=== PATIENT | male | born 1960 | race Caucasian/White ===

== ENCOUNTER → 2019-02-20 12:38 | Outpatient (CLI) | payer OTHER, SELFPAY ==
--- NOTE | 2019-02-20 | DI.MRI.S_ITS ---
PROCEDURE: MR ANKLE RT WO CON INDICATIONS: Pain in right ankle and joints of right foot. Ankle pain and difficulty walking. TECHNIQUE: Noncontrast sagittal T1 spin echo and T2 fast spin echo with fat saturation, axial proton density fast spin echo and T2 fast spin echo with fat saturation, coronal T1 spin echo and T2 fast spin echo with fat saturation through the ankle/hindfoot. COMPARISON: None. FINDINGS: Image quality: There is mild motion artifact. Bones and joints: There is bony scalloping suggestive of erosive changes within the inferior talus and adjacent calcaneus along the subtalar joint with associated prominent bone marrow edema in the talus and calcaneus. No discrete fracture identified. There is a small subtalar joint effusion as well as intermediate soft tissue along the subtalar joint. There is a small tibiotalar joint effusion with a loculated component posteriorly. There is mild subchondral edema within the medial talar dome without a displaced or unstable fragment. Medial structures: The posterior tibialis, flexor digitorum longus, and flexor hallucis longus tendons are intact with a minimal amount of tenosynovial fluid. The posterior tibial neurovascular bundle appears normal within the tarsal tunnel, without extrinsic mass effect. The deltoid ligament demonstrates intermediate signal as attenuated appearance consistent with sequelae of a prior moderate to severe sprain. There is a small ossicle inferior to the medial malleolus consistent with sequelae of a small avulsion injury. The spring ligament components demonstrate attenuated signal likely represent sequelae of prior sprains. There is a small loculated fluid collection adjacent to the spring ligament inferior to the talar head suggestive of a ganglion cyst. This measures up to approximately 2 cm. Lateral structures: The anterior talofibular ligament is attenuated in appearance with fluid and edema along its expected course consistent with sequelae of a severe sprain. The calcaneofibular ligament is thickened consistent with sequelae of a prior mild to moderate sprain. The posterior talofibular ligament demonstrates mild intermediate signal consistent with degeneration or mild sprain. More superiorly, the anterior and posterior tibiofibular ligaments appear intact, as is the intermalleolar ligament. The tibiofibular syndesmosis demonstrates slight widening, measuring up to 3-4 mm, suggestive of a syndesmotic sprain. The peroneus longus and brevis tendons demonstrate normal location and morphology with mild peritendinous edema. Adjacent bony peroneal tubercle and retrotrochlear prominence are normal in size. The sinus tarsi demonstrates effacement of normal fatty signal with internal edema and bony scalloping along its margins. There also adjacent small cysts compatible with ganglion cysts measuring up to 1.2 cm. The calcaneonavicular and calcaneocuboid components of the bifurcate ligament appear intact. The dorsal calcaneocuboid ligament appears intact. Anterior structures: The tibialis anterior, extensor hallucis longus, and extensor digitorum longus tendons appear intact. The dorsal talonavicular ligament appears intact. Posterior and plantar structures: Achilles tendon is intact. Medial and lateral bands of the plantar fascia are of normal thickness. No abductor digiti quinti muscle atrophy to suggest Erickson neuropathy. IMPRESSION: 1. Bony scalloping suggestive of erosive changes along the subtalar joint involving the talus and to a lesser extent the calcaneus. The findings may reflect sequelae of an inflammatory arthropathy, intraosseous ganglion cysts with associated reactive changes, and less likely infection. Recommend correlation clinically. 2. Sequelae of a prior moderate to severe sprain of the deltoid ligament with a small avulsion fragment. 3. Sequelae of prior sprains of the spring ligament components with an associated ganglion cyst. 4. Lateral ligamentous sprains as described including a severe sprain of the anterior talofibular ligament. 5. Small focus of subchondral edema along the medial talar dome without a displaced or unstable osteochondral lesion. Dictated by: Manuel Levy M.D. on 02/20/2019 at 17:03 Approved by: Manuel Levy M.D. on 02/20/2019 at 17:16
== END ==
PROVIDERS: PCP Family Medicine; Visit Provider Podiatrist
DX: M25.571 Pain in right ankle and joints of right foot (principal); S83.421A Sprain of lateral collateral ligament of right knee, initial encounter; M25.461 Effusion, right knee; R26.2 Difficulty in walking, not elsewhere classified
CPT/HCPCS: 73721

== ENCOUNTER → 2019-09-12 15:35 | Outpatient (CLI) | payer OTHER, SELFPAY ==
--- NOTE | 2019-09-12 | DI.MRI.S_ITS ---
PROCEDURE: MR ANKLE RT WO/W CON INDICATIONS: Localized swelling, mass and lump, unspecified low TECHNIQUE: Noncontrast sagittal T1 spin echo and T2 fast spin echo with fat saturation, axial proton density fast spin echo and T2 fast spin echo with fat saturation, axial T1 spin echo with fat saturation, coronal T1 spin echo and T2 fast spin echo with fat saturation through the ankle/hindfoot. Post-contrast axial, coronal, and sagittal T1 spin echo with fat saturation through the ankle/hindfoot. COMPARISON: [facility], CR, XR FOOT 3+ VIEWS RIGHT, 09/07/2019, 15:12. [facility], CR, XR ANKLE 3+ VIEWS RIGHT, 09/07/2019, 15:17. [facility], MR, MR ANKLE RT WO CON, 02/20/2019, 12:44. FINDINGS: Image quality: Diagnostic. Bones and joints: No displaced acute fractures or dislocations are identified. There is a markedly abnormal appearance of the talus and calcaneus with postoperative changes noted along the lateral border of the talus. There prominent areas of geographic marrow edema identified within the talus and the adjacent anterior margin of the calcaneus. Degenerative changes of the middle and posterior subtalar joints are present. Degenerative cystic changes versus large erosions are noted in involving the talus near the middle subtalar joint, which is best appreciated within the region of the sinus tarsi. Small middle subtalar joint effusion is appreciated. Ifyl-su-rdeddvox degenerative changes are noted involving the tibiotalar joint. There is marrow edema involving the medial and lateral malleoli. Ankle mortise is well-maintained. No osteochondral defects are evident involving the tibial plafond toward the talar dome. There are full-thickness defects of the hyaline articular cartilage within the tibiotalar joint, however. A small to moderate-sized tibiotalar joint effusion is present. No suspicious osseous enhancement or definitive bone lesions are appreciated. Medial structures: The deltoid ligament is thickened and irregular demonstrating decreased signal intensity, suggesting scarring. A small avulsion fragment may be present at the tip of the medial malleolus, best appreciated on the T1 images. This is correlated with a conventional radiographic imaging. The spring ligament is thickened and heterogeneous, but appears to be intact, including the plantar components. They have tibialis posterior, flexor hallucis longus, and flexor digitorum longus tendons appear to be intact and are otherwise unremarkable. The posterior tibial nerve through the region of the tarsal tunnel is unremarkable. Lateral structures: The anterior and posterior distal tibiofibular ligaments are moderately heterogeneous, likely representing scarring. A full-thickness anterior talofibular ligament tear is present. The calcaneofibular ligament is moderately thickened and diffusely edematous with probable areas of intrasubstance partial-thickness tearing, which appears to have progressed in the interim. The posterior talofibular ligament is moderately heterogeneous, likely representing scarring. The thickening and mild increased signal involving the peroneus brevis and peroneus longus tendons at the tip of the lateral malleolus is similar to the prior study. Mild edema is present within the peritendinous tissues. A large ganglion cyst with associated prominent synovial hypertrophy/enhancement along the posterior margin of the tibiotalar joint probably is arising from the posterior talofibular ligament. Anterior structures: The tibialis anterior, extensor hallucis longus, and extensor digitorum longus tendons appear intact. Posterior and plantar structures: Achilles tendon is intact. Slight increase signal involving the mid to distal aspect of this tendon is incidentally noted. Medial and lateral bands of the plantar fascia are of normal thickness. Other: No suspicious soft tissue enhancement or definite soft tissue masses are evident. IMPRESSION: 1. The patient's palpable abnormality probably correlates with a prominent ganglion/synovial cyst with associated synovial hypertrophy along the posterior aspect of the tibiotalar joint and may be arising from tearing of the posterior talofibular ligament. A superimposed infectious or inflammatory process is felt to be less likely, but cannot be excluded. 2. Abnormal marrow signal of the talus and calcaneus most likely is degenerative. However, superimposed bone contusions or osteomyelitis cannot be completely excluded, but are felt to be less likely. 3. Tibiotalar joint effusion. 4. Peroneus brevis and peroneus longus tendinopathy without significant tearing. 5. Minimal Achilles tendinopathy. 6. Chronic injuries with associated scarring of the medial and lateral ankle ligaments. There does appear to have been interval progression of partial-thickness tearing of the calcaneofibular ligament. Dictated by: Kofi Childs M.D. on 09/12/2019 at 16:24 Approved by: Kofi Childs M.D. on 09/12/2019 at 16:34
== END ==
PROVIDERS: Family Provider Family Medicine; PCP Family Medicine; Visit Provider Podiatrist
DX: R22.41 Localized swelling, mass and lump, right lower limb (principal); M67.471 Ganglion, right ankle and foot; S93.411A Sprain of calcaneofibular ligament of right ankle, initial encounter
CPT/HCPCS: 73723; A9579

== ENCOUNTER 2019-11-17 10:01 | Day surgery (SDC) | payer OTHER, SELFPAY ==
[2019-11-14 08:31] VITALS: BMI 26.6
[2019-11-17] VITALS (7 sets, daily range): BP systolic 117–164; BP diastolic 85–99; PULSE 53–73; RESP 12–16; TEMP 36.2–36.7; O2SAT 96–100; BMI 25.6
--- NOTE | 2019-11-17 | PATH_ITS ---
[facility] Accession Number: [id number] . 01 Material submitted: . ankle - RIGHT ANKLE . 01 Diagnosis: Soft Tissue, Right Ankle, Excision: Fibrosynovial tissue with degenerative/reactive features and focal changes consistent with ganglion cyst. MRV 11/20/2019 1740 Local . 01 Electronically signed: . Yazmin Abad MD, Pathologist NPI- [id number] . 01 Gross description: . RIGHT ANKLE: Received in formalin is 1 fragment of carreon soft tissue measuring 1.1 x 1.0 x 0.9 cm. Tissue is inked. Specimen is sectioned and submitted in its entirety in 2 cassettes. /[facility] 11/17/2019 2356 Local . 01 Pathologist provided ICD-10: M67.449 . 01 CPT . 393476 Performed at: [address] [facility] [id number] MD Manuel Feliciano MD Phone: [phone]
[2019-11-17] MEDS: LACTATED RINGERS 1,000 ML 42 ML IV (10:35)
--- NOTE | 2019-11-17 11:36 | PM.PREOP ---
Pre-operative Note Interval Note History & Physical reviewed/Exam performed by Physician: Yes Changes to H&P: No
--- NOTE | 2019-11-17 11:36 | PM.OP.1 ---
Operative Date/Time/Diagnoses Date of procedure: 11/17/19 Time of procedure: 11:36 Pre-op diagnosis: Right posterior ankle soft tissue mass, suspect ganglion cyst. Right ankle DJD. Post-op diagnosis: same Procedure & Clinicians Procedure: Right posterior ankle soft tissue mass excision Right posterior subtalar joint exostectomy/arthrotomy Same procedure as scheduled: Yes Indications: Painful fullness to the ankle and narrowing of the joint space. Conservative measures failed to alleviate his pain and he wished to have surgical intervention at this time. Surgeon: Renetta Haro Click Yes if Unassisted: Yes Anesthesia Type: General Operative Notes Closure Type: primary Specimen(s): other (Soft tissue mass posterior ankle, suspect ganglion cyst) Estimated Blood Loss (mL): 30 Blood products transfused: none Procedure in detail: The patient was brought to the operating room and after our time-out, underwent induction of general anesthesia on the [facility]. A tourniquet was placed on the right thigh. He was transferred to the operating table in the prone position, well-padded and appropriately aligned. The ankle were prepped and draped in the usual aseptic manner. Anesthesia was delivered locally to the posterolateral ankle and subtalar joint. The tourniquet was inflated. Incision was made over the posterior lateral ankle between the Achilles and the fibular malleolus. The incision was deepened through subcutaneous tissues being careful to identify and retract all vital neurovascular structures. All bleeders were cauterized and ligated as necessary. Gently dissecting through an enlarged fat pad in this area, I was able to get down to the capsule and deepest tissues near the posterior lateral subtalar joint. there is a very thickened area of tissue that was just posterior to the posterior talofibular ligament and almost conjoined up with joint capsule. This was enlarged and filled with a slightly yellow to brown tinged clear slightly viscous fluid. This did not appear to be attached to the peroneal tendon components as that was much higher, and appeared to be discrete. This was removed and passed from the field. It measured approximately 1.4 x 1.1 x 0.3 cm. The posterior lateral subtalar joint capsule was entered this exposed the spurring and the narrowing of the joint space at the posterior facet. Also the fluid in that joint space area appeared to be clear with a slight darker tinge of brown to orange. Once it was clear the location of the prominence of that joint as well as the tightness of that joint, a rongeur as well as curette and very small osteotome were used to gain a little bit more room in that location. The bone did appear to feel softer in that location. A manual rasp was also used at the end to deliver a smoother surface. The area was irrigated with copious amounts normal sterile saline. The ankle and subtalar joint were gently brought through range of motion not noting any significant crepitus or catching in that location. Deep and subcutaneous closure was closed performed with Vicryl. The tourniquet was deflated and a prompt hyperemic response was seen in the foot. Nylon suture used to close the skin. with the deeper bleeding it was for the most part arrested however there was still some oozing from the bone most likely, so before the skin suture, I elected to use a TLS drain. Once it was closed and the dressing was placed the suction was able to work well and was draining appropriately. The foot was dressed with a lightly compressive sterile dressing and splint in alignment. Patient was meant to be placed in his postoperative boot however he stated that it was in the car and a little bit too zainab to place in operating room. He preferred not to get another 1 and understands that if it appears to be too dirty or unsafe he should request a prescription for a different boot. He was Transferred to PACU with vital signs stable. Complications: none Post-operative Condition: stable Disposition: PACU Plan for aftercare: Following a period of postoperative monitoring, the patient will be discharged home on written and oral postoperative instructions. He will keep the dressing dry and intact however in approximately 48 hours he was taught how to remove the drain. He also is given a vaccutainer to be able to swap out should his current vacutainer fill. The drain and vacutainer is appropriately padded and secured. He is okay to get into the boot with the drain on, but should not weightbear in the boot with the drain. Once the drain is removed he may put a little bit of weight on the foot but should not put full weight-bearing until we review him and his status at his 1st postoperative visit.
[2019-11-17] MEDS: CEFAZOLIN 2 GM/100 ML FROZ.PIGGY IV (11:44)
--- NOTE | 2019-11-17 12:22 | SUR.OPER ---
Prone on padded OR bed, head in foam head support, gel chest rolls, gel pad under knees, pillow under lower legs, toes free of pressure, arms secured on padded arm boards at <90 degrees abduction. Safety belt at thigh.
[2019-11-17] MEDS: DEXAMETHASONE 10 MG/ML VIAL 5 MG INJ (13:31)
[2019-11-17] MEDS: BUPIVACAINE 0.5% (PF) VIAL 30 ML INJ (13:36)
[2019-11-17] MEDS: KETOROLAC 30 MG/ML VIAL IV (14:10)
--- NOTE | 2019-11-17 15:53 | SUR.PHASEII ---
Pt ready to go soomn after arriving to Phase 2, pain controlled no nausea. When daughter arrived, extensive d/c instructions done on tube, drain and boot with daughter and pt along with all other d/c instruction. Pt left when ready and left in stable condition.
--- NOTE | 2019-11-20 15:38 | SUR.PHASEII ---
Pt just called back; states that he got a courtesy call this morning and that he is now starting to get concerned about a cough feels like sand in my throat.... doesn't feel like it's in my lungs. Denies SOB, difficulty breathing, calf pain/redness, or fever. Advised him to do coughing and deep breathing, and to call the surgeons office and talk to the doctor commissioned police officer. Also told him to be sure to notify them if he develops a fever. Pt states that he will do that and continued to state that he doesn't feel it is 'in my lungs.
== END 2019-11-17 15:30 | disposition home or self-care (01) ==
PROVIDERS: Family Provider Family Medicine; PCP Family Medicine; Referring Provider Podiatrist; Visit Provider Podiatrist
PROC: (CPT 28090; principal; 2019-11-17 11:15)
DX: R22.41 Localized swelling, mass and lump, right lower limb (principal); M25.371 Other instability, right ankle; M25.571 Pain in right ankle and joints of right foot; M19.071 Primary osteoarthritis, right ankle and foot
CPT/HCPCS: 28100; 27630; J0330; J0690; J1100; J1885; J2250; J2405; J2704; J3010

== ENCOUNTER → 2020-03-22 13:42 | Outpatient (CLI) | payer OTHER, SELFPAY ==
--- NOTE | 2020-03-22 13:44 | DI.RAD.S_ITS ---
PROCEDURE: FL BARIUM SWALLOW INDICATIONS: Dyskinesia of esophagus COMPARISON: None. FINDINGS: Function: There is mildly decreased esophageal peristalsis. No elicited gastroesophageal reflux. There is normal transit of a calibrated barium tablet through the esophagus into the stomach. Morphology: Air-contrast images demonstrate normal mucosal morphology. Single contrast views show no esophageal strictures, extrinsic mass effects, or diverticula. Limited images of the stomach demonstrate normal appearance. IMPRESSION: Mild esophageal dysmotility Dictated by: Nate Mendiola M.D. on 03/22/2020 at 15:47 Approved by: Nate Mendiola M.D. on 03/22/2020 at 15:48
== END ==
PROVIDERS: Family Provider Family Medicine; PCP Family Medicine; Referring Provider Family Medicine; Visit Provider Family Medicine
DX: K22.4 Dyskinesia of esophagus (principal); K27.9 Peptic ulcer, site unspecified, unspecified as acute or chronic, without hemorrhage or perforation
CPT/HCPCS: 74220

== ENCOUNTER → 2020-04-13 10:20 | Outpatient (CLI) | payer OTHER, SELFPAY ==
[2020-04-14 18:51] LABS: COVID19 Sendout Not Detected (Not Detect)
== END ==
PROVIDERS: Family Provider Family Medicine; PCP Family Medicine; Visit Provider Physician Assistant
DX: Z01.812 Encounter for preprocedural laboratory examination (principal)
CPT/HCPCS: 87635

== ENCOUNTER 2020-05-05 04:13 | Observation (INO) | payer OTHER, SELFPAY ==
[2020-05-05] VITALS (30 sets, daily range): BP systolic 126–183; BP diastolic 66–96; PULSE 41–82; RESP 9–34; TEMP 36.2–36.6; O2SAT 90–100; BMI 25.8
--- NOTE | 2020-05-05 | PATH_ITS ---
[facility] Accession Number: [id number] . 01 Material submitted: . gallbladder - GALLBLADDER . 01 Clinical history: . CHEST PAIN . 02 Diagnosis: Gallbladder, Cholecystectomy: Active cholecystitis with coagulative necrosis of gallbladder wall. No evidence of neoplasm. MRV 05/08/2020 1032 Local . 02 Electronically signed: . Shiva Echeverria MD, PhD, Pathologist NPI- [id number] . 01 Gross description: . Specimen A is received in formalin, labeled with patient identification and gallbladder. It consists of a previously opened gallbladder measuring 9.5 cm in length and 4.0 cm in diameter. The cystic duct margin is sutured shut and is inked blue. The cystic duct is 0.5 cm in diameter. The serosa is yellow to castrejon and smooth. The hepatic surface is yellow-carreon, ragged and focally cauterized. The mucosa is yellow-carreon, green tinted and mildly rough. The wall thickness is up to 0.5 cm. No calculi or cystic duct lymph node candidate are present. Dispatcher Radio sections are submitted in four cassettes. . Summary of sections: A1 - cystic duct margin, shaved, one piece. A2 - correspondence representative sections of fundus, two pieces. A3 - correspondence representative sections of body, two pieces. A4 - correspondence representative sections of neck, two pieces. ([id number]) /MRV 05/07/2020 1553 Local . 02 Pathologist provided ICD-10: K81.0 . 02 CPT . 027360 Performed at: 01 [facility] [address] [facility], [place], [place] [id number] MD Manuel Feliciano MD Phone: [phone] Performed at: 02 [facility] [address] [place] [id number] MD Christi Cruz MD Phone: [phone]
--- NOTE | 2020-05-05 | DI.RAD.S_ITS ---
PROCEDURE: XR CHOLANGIOGRAM OPERATIVE INDICATIONS: LAP EMILIANO WITH GRAMS COMPARISON: , CT, CT CHEST ABDOMEN W CON, 05/05/2020, 6:14. FINDINGS: Biliary ducts: The surgeon injected contrast into the biliary ducts after cannulation of the cystic duct stump. Visualized intra- and extrahepatic bile ducts are normal in caliber, without strictures. There is a potential retained distal common duct stone. No evidence for iatrogenic ductal injury. Duodenum: Contrast flows promptly through the sphincter of Oddi into the duodenum, which appears normal in caliber. IMPRESSION: Potential distal common duct stone. Please correlate with intraoperative findings. If clinically appropriate, an MRCP could be considered for further evaluation (assuming that there is no contraindication to MRI). Dictated by: Erlin Marrufo M.D. on 05/05/2020 at 11:47 Approved by: Erlin Marrufo M.D. on 05/05/2020 at 11:49
--- NOTE | 2020-05-05 04:13 | ED.CHESTPAIN ---
HPI - Chest Pain General Chief Complaint: Chest Pain Stated Complaint: chest pain Time Seen by Provider: 05/05/20 04:13 Source: patient and family Mode of arrival: Ambulatory Limitations: no limitations History of Present Illness HPI narrative: 59-year-old male nonsmoker with history of nutcracker esophagus presents with his in the chief complaint of a sudden onset severe epigastric pain for the past 4 hours. He states it is very sharp and stabbing and more intense than his typical episodes. He took 5 nitro as before arriving and states it did nothing. He finally took a hyoscyamine and states it made his symptoms worse. He has had nausea but denies vomiting. His symptoms are worse when he moves or eats. He denies any exertional symptoms. He is not dizzy nor weak or lightheaded. He denies any fever chills. He has had no runny nose, sore throat or cough. He had his most recent episode about 1 month ago, he had an EGD at that time and is managed by Gastroenterology at the [facility] complaint: chest pain Onset (ago): hour(s) Duration: constant Onset: during rest Pain location: epigastric Severity: severe Related Data Home Medications Medication Instructions Recorded Confirmed Esomep-EZS 20 mg PO DAILY 05/05/20 05/05/20 melatonin 10 mg PO BEDTIME 05/05/20 05/05/20 omeprazole 20 mg PO DAILY 05/05/20 05/05/20 Previous Rx's Medication Instructions Recorded oxycodone-acetaminophen [Percocet] See Rx Instructions .ROUTE 05/05/20 .COMPLEX PRN #14 tab Allergies Allergy/AdvReac Type Severity Reaction Status Date / Time No Known Drug Allergies Allergy Verified 11/17/19 10:12 Review of Systems Constitutional Constitutional: Denies chills, Denies fatigue, Denies fever(s), Denies frequent falls, Denies lethargy and Denies weakness Eyes Eyes: Denies change in vision, Denies eye discharge, Denies irritation and Denies loss of vision ENT Ears, Nose, Mouth, and Throat: Denies change in voice, Denies dizziness, Denies neck pain, Denies sore throat and Denies throat swelling Cardiovascular Cardiovascular: Denies chest pain, Denies irregular heart rhythm, Denies lightheadedness, Denies palpitations, Denies dyspnea, Denies dyspnea on exertion and Denies orthopnea Respiratory Respiratory: Denies cough, Denies dyspnea, Denies dyspnea on exertion and Denies wheezing Gastrointestinal Gastrointestinal: Reports abdominal pain, Denies change in bowel habits, Denies diarrhea, Reports nausea and Denies vomiting Musculoskeletal Musculoskeletal: Denies neck pain and Denies numbness Integumentary/Breasts Skin/Breast: Denies pruritus, Denies erythema, Denies rash and Denies wounds Neurologic Neurologic: Denies behavioral changes, Denies confusion, Denies dizziness, Denies frequent falls, Denies loss of vision, Denies numbness and Denies weakness Psychiatric Psychiatric: Denies anxiety, Denies behavioral changes, Denies confusion, Denies depression, Denies homicidal ideation and Denies suicidal ideation Endocrine Endocrine: Denies fatigue, Denies flushing and Denies palpitations Hematologic/Lymphatic Hematologic/Lymphatic: Denies easy bruising Allergic/Immunologic Allergic/Immunologic: Denies urticaria, Denies throat swelling and Denies wheezing Patient History Medical History Allergic rhinitis (Acute) GERD (gastroesophageal reflux disease) (Acute) Hx of hemorrhoids (Acute) Surgical History History of ankle surgery (Acute) Hx of spinal surgery (Acute) Social History household members: spouse Smoking Status: Never smoker alcohol intake: never Smoking Status: Never smoker Substance Use Type: does not use Exam Narrative Exam Narrative: GENERAL: [59] year old patient appears stated age. Well-nourished, well-developed patient, in mild distress. HEAD: Atraumatic. Normocephalic. EYES: Pupils equal round and reactive. Extraocular motions intact. No scleral icterus. No injection or drainage. ENT: Nose without bleeding, purulent drainage. Throat without erythema, tonsillar hypertrophy or exudate. Airway patent. NECK: Trachea midline. Non tender CARDIOVASCULAR: Regular rate and rhythm without murmurs, gallops, or rubs. RESPIRATORY: Clear to auscultation. Breath sounds equal bilaterally. No wheezes, rales, or rhonchi. GASTROINTESTINAL: Abdomen soft, non-tender, nondistended. EXTREMITIES: No edema or joint tenderness. BACK: Nontender without deformity or crepitance. No flank tenderness. NEURO: AOx3. SKIN: No rash or erythema of visible areas Initial Vital Signs Initial Vital Signs: Vital Signs Temperature 97.9 F 05/05/20 04:23 Pulse Rate 45 L 05/05/20 04:23 Respiratory Rate 20 05/05/20 04:23 Blood Pressure 169/84 H 05/05/20 04:23 Pulse Oximetry 100 05/05/20 04:23 Course Orders Ordered: Discontinued Medications Acetaminophen (Tylenol) 650 mg PO PACUNOW PRN PRN Reason: Pain, Mild (1-3) Bupivacaine HCl (Sensorcaine 0.5% (Pf)) 30 ml INJ NOW ONE Stop: 05/05/20 10:58 Last Admin: 05/05/20 10:57 Dose: 30 ml Documented by: KATHRINE Graf Hydrox/Mg Hydrox/Simethicone 20 ml/ Lidocaine HCl 15 ml 0 ml PO NOW ONE Stop: 05/05/20 05:34 Last Admin: 05/05/20 05:44 Dose: 15 ml Documented by: MARTHA Diltiazem HCl (Cardizem) 5 mg IV NOW ONE Stop: 05/05/20 06:01 Last Admin: 05/05/20 06:05 Dose: 5 mg Documented by: MARTHA Fentanyl (Sublimaze) 0 mcg IV Q5M PRN PRN Reason: Pain, Moderate (4-6) Last Admin: 05/05/20 13:53 Dose: 50 mcg Documented by: TIKI Hydromorphone HCl (Dilaudid) 0 mg IV Q5MIN PRN PRN Reason: Pain, Mild (1-3) Sodium Chloride (Normal Saline 0.9%) 1,000 mls @ 150 mls/hr IV CONT DELIO Last Infusion: 05/05/20 09:46 Dose: 150 mls/hr Documented by: Admin: 05/05/20 04:30 Dose: 150 mls/hr Documented by: DYAN Cefotetan Disodium/Dextrose (Cefotan) 2 gm in 50 mls @ 100 mls/hr IV NOW ONE Stop: 05/05/20 10:21 Last Infusion: 05/05/20 10:27 Dose: 0 mls/hr Documented by: Admin: 05/05/20 10:18 Dose: 100 mls/hr Documented by: SHREYA Lactated Ringer's (Lactated Ringers) 1,000 mls @ 42 mls/hr IV CONT DELIO Last Admin: 05/05/20 12:04 Dose: 42 mls/hr Documented by: Infusion: 05/05/20 12:04 Dose: 42 mls/hr Documented by: Admin: 05/05/20 10:00 Dose: 42 mls/hr Documented by: SHREYA Iopamidol (Isovue-M 300) 45 ml INJ NOW ONE Stop: 05/05/20 12:01 Last Admin: 05/05/20 12:01 Dose: 45 ml Documented by: KATHRINE Metoclopramide HCl (Reglan) 10 mg IV NOW PRN PRN Reason: Nausea And Vomiting Morphine Sulfate (Morphine) 4 mg IV NOW ONE Stop: 05/05/20 04:21 Last Admin: 05/05/20 04:34 Dose: 4 mg Documented by: DYAN Morphine Sulfate (Morphine) 4 mg IV NOW ONE Stop: 05/05/20 04:43 Last Admin: 05/05/20 04:47 Dose: 4 mg Documented by: DYAN Nitroglycerin (Nitrostat) 0.4 mg SL NOW ONE Stop: 05/05/20 04:21 Last Admin: 05/05/20 04:31 Dose: 0.4 mg Documented by: DYAN Ondansetron HCl (Zofran) 4 mg IV Q4HR PRN PRN Reason: Nausea And Vomiting Last Admin: 05/05/20 04:32 Dose: 4 mg Documented by: DYAN Ondansetron HCl (Zofran) 4 mg IV NOW PRN PRN Reason: Nausea And Vomiting Oxycodone/Acetaminophen (Percocet 5/325) 1 tab PO PACUNOW PRN PRN Reason: Mild or Moderate Pain Last Admin: 05/05/20 14:24 Dose: 1 tab Documented by: Admin: 05/05/20 14:09 Dose: 1 tab Documented by: TIKI Pantoprazole Sodium (Protonix) 40 mg IV NOW ONE Stop: 05/05/20 04:45 Last Admin: 05/05/20 04:50 Dose: 40 mg Documented by: DYAN Reevaluation(s) Reevaluation #1: no improvement after Nitro, minimal with morphine repeat dose of morphine with continued improvement, now 05/13 Consultations Consultation #1: discussion with Dr. Magallon. Recommends GI cocktail, discussion with him about diltiazem. Diltiazem results in minimal change, HR remains in upper 50s, low 60s Vital Signs Vital signs: Vital Signs - 8 hr 05/05/20 04:23 05/05/20 04:31 05/05/20 04:39 Temperature 97.9 F Pulse Rate 45 L 56 L Respiratory Rate 20 31 H Blood Pressure 169/84 H 158/79 H Pulse Oximetry 100 98 05/05/20 04:40 05/05/20 04:46 05/05/20 04:50 Temperature Pulse Rate 47 L 52 L 47 L Respiratory Rate 34 H 33 H Blood Pressure 129/66 145/69 H 147/79 H Pulse Oximetry 98 98 99 05/05/20 05:00 05/05/20 05:30 05/05/20 06:00 Temperature Pulse Rate 45 L 41 L 60 Respiratory Rate 20 18 19 Blood Pressure 140/72 160/77 H 147/85 H Pulse Oximetry 94 94 95 05/05/20 06:37 05/05/20 06:45 Temperature Pulse Rate 63 59 L Respiratory Rate 18 Blood Pressure 157/82 H Pulse Oximetry 90 L 95 MDM - Chest Pain Lab Data Result diagrams: 05/05/20 04:25 05/05/20 04:25 Labs: Lab Results 05/05/20 05/05/20 05/05/20 Range/Units 04:25 04:25 04:25 WBC 15.2 H (4.5-11.0) X10^3/uL RBC 5.08 (4.5-5.9) X10^6/uL Hgb 15.2 (13.5-17.5) g/dL Hct 44.6 (41-53) % MCV 87.7 (80-100) fL MCH 29.8 (26-34) PG MCHC 34.0 (30-36) % RDW 13.1 (11.6-14.8) % Plt Count 275 (150-400) X10^3/uL Neut % (Auto) Not Reportable Lymph % (Auto) Not Reportable [place] % (Auto) Not Reportable Eos % (Auto) Not Reportable Baso % (Auto) Not Reportable Lymph # (Auto) Not Reportable [place] # (Auto) Not Reportable Baso # (Auto) Not Reportable Total Counted 100 Seg Neutrophils % 66.0 (38-70) % Band Neutrophils % 2.0 L (3-7) % Lymphocytes % (Manual) 22.0 L (25-45) % Monocytes % (Manual) 9.0 (2-11) % Basophils % (Manual) 1.0 (0-1) % Neutrophils # (Manual) 54076 H (0010-3032) /uL RBC Morphology Normal morphology PT 11.8 (10.1-12.7) SECONDS INR 1.0 (0.9-1.3) D-Dimer < 200 (<230) ng/mL Sodium 139 (137-145) mmol/L Potassium 3.9 (3.4-5.1) mmol/L Chloride 108 H (98-107) mmol/L Carbon Dioxide 21 L (22-32) mmol/L BUN 20 (9-20) mg/dL Creatinine 1.02 (0.66-1.25) mg/dL Estimated GFR > 60.0 (>60) mL/min BUN/Creatinine Ratio 19.6 (6-22) Glucose 169 H (80-110) mg/dL Calcium 9.5 (8.4-10.2) mg/dL Total Bilirubin 1.3 (0.2-1.3) mg/dL AST 22 (17-59) IU/L ALT 21 (<50) IU/L Alkaline Phosphatase 75 (38-126) U/L Total Creatine Kinase 102 (55-170) U/L CK-MB (CK-2) 0.94 (<2.37) ng/mL CK-MB (CK-2) Rel Index 0.9 L (1.5-5.0) % Troponin I < 0.012 (0.01-0.034) ng/mL NT-Pro-B Natriuret Pep 63 (<125) pg/mL Total Protein 6.9 (6.3-8.2) g/dL Albumin 4.5 (3.5-5.0) g/dL Globulin 2.4 (1.7-4.1) g/dL Albumin/Globulin Ratio 1.9 (1.0-2.8) Lipase 108 (23-300) U/L COVID-19 PCR (Negative) 05/05/20 Range/Units 07:20 WBC (4.5-11.0) X10^3/uL RBC (4.5-5.9) X10^6/uL Hgb (13.5-17.5) g/dL Hct (41-53) % MCV (80-100) fL MCH (26-34) PG MCHC (30-36) % RDW (11.6-14.8) % Plt Count (150-400) X10^3/uL Neut % (Auto) Lymph % (Auto) [place] % (Auto) Eos % (Auto) Baso % (Auto) Lymph # (Auto) [place] # (Auto) Baso # (Auto) Total Counted Seg Neutrophils % (38-70) % Band Neutrophils % (3-7) % Lymphocytes % (Manual) (25-45) % Monocytes % (Manual) (2-11) % Basophils % (Manual) (0-1) % Neutrophils # (Manual) (8795-6752) /uL RBC Morphology PT (10.1-12.7) SECONDS INR (0.9-1.3) D-Dimer (<230) ng/mL Sodium (137-145) mmol/L Potassium (3.4-5.1) mmol/L Chloride (98-107) mmol/L Carbon Dioxide (22-32) mmol/L BUN (9-20) mg/dL Creatinine (0.66-1.25) mg/dL Estimated GFR (>60) mL/min BUN/Creatinine Ratio (6-22) Glucose (80-110) mg/dL Calcium (8.4-10.2) mg/dL Total Bilirubin (0.2-1.3) mg/dL AST (17-59) IU/L ALT (<50) IU/L Alkaline Phosphatase (38-126) U/L Total Creatine Kinase (55-170) U/L CK-MB (CK-2) (<2.37) ng/mL CK-MB (CK-2) Rel Index (1.5-5.0) % Troponin I (0.01-0.034) ng/mL NT-Pro-B Natriuret Pep (<125) pg/mL Total Protein (6.3-8.2) g/dL Albumin (3.5-5.0) g/dL Globulin (1.7-4.1) g/dL Albumin/Globulin Ratio (1.0-2.8) Lipase (23-300) U/L COVID-19 PCR Negative (Negative) MDM Narrative Medical decision making narrative: Patient initally with very intense unprovoked epigastric pain which reminded him of prior episodes of nutcracker esophagus, but didn't respond to meds like previously and is more intense. He last ate at 6pm and went to sleep feeling fine. Pain is improved, labs are largely unremarkable except for an elevated WBC count, etiology unclear. CT suggests distended gallbladder with thickened wall and gall stones. Dr. Magallon to come see patient Discharge Plan Departure Patient Disposition: Admitted As Inpatient Clinical Impression: Acute cholecystitis Discharge Date/Time: 05/05/20 09:47 Instructions: [facility] for Laparoscopy, [facility]: Wound Care Referrals: Dashawn Kessler DO [Primary Care Provider] - Louis Magallon MD [Physician] - 2 Weeks (Please call my office on Wednesday and make an appointment to see me in about 1-2 weeks. If you need to reach a doctor please call our office. If it is after hours listen to the entire message and you will be connected to the page maintenance equipment operator at the end of the message. They will call the doctor on-call for our practice.) Admit Date/Time: 05/05/20 08:44 Admit Provider: Louis Magallon
--- NOTE | 2020-05-05 04:20 | DI.RAD.S_ITS ---
PROCEDURE: XR CHEST 1V INDICATIONS: chest pain TECHNIQUE: One view of the chest was acquired. COMPARISON: None. FINDINGS: Surgical changes and devices: Spine surgery from the lumbosacral region extending into the low thoracic spine is noted, partially visualized.. Lungs and pleura: Lungs are difficult to accurately assess due to patient tilt rightward and reduced inspiratory volume. With these factors are taken into account the lungs likely are clear.. No pleural effusions or pneumothorax. Mediastinum: Mediastinal contours appear normal. Heart size is normal. Bones and chest wall: No suspicious bony lesions. Overlying soft tissues appear unremarkable. IMPRESSION: Reduced inspiration, patient tilt rightward, no definite acute disease over the lungs. Dictated by: Luis Terrell M.D. on 05/05/2020 at 7:39 Approved by: Luis Terrell M.D. on 05/05/2020 at 7:40
[2020-05-05] MEDS: SODIUM CHLORIDE 0.9% 1,000 ML 150 ML IV (04:30)
[2020-05-05] MEDS: NITROGLYCERIN 0.4 MG SL TAB SL (04:31)
[2020-05-05] MEDS: ONDANSETRON 4 MG/2 ML INJ IV (04:32)
[2020-05-05] MEDS: MORPHINE 4 MG/ML INJ IV ×2 (04:34→04:47)
[2020-05-05 04:40] LABS: Prothrombin Time 11.8 SECONDS (10.1-12.7)
--- NOTE | 2020-05-05 04:40 | PC.NURSE ---
Pt in severe pain after 1 ntg SL. 4mg morphine given, will monitor.
[2020-05-05 04:41] LABS: Hematocrit 44.6 % (41-53); Hemoglobin 15.2 g/dL (13.5-17.5); Mean Corpuscular Hemoglobin 29.8 PG (26-34); Mean Corpuscular Volume 87.7 fL (80-100); Platelet Count 275 X10^3/uL (150-400); Red Blood Cell Count 5.08 X10^6/uL (4.5-5.9); Red Cell Distribution Width 13.1 % (11.6-14.8); White Blood Cell Count 15.2 X10^3/uL (4.5-11.0)
[2020-05-05 04:42] LABS: Add Manual Diff / Slide Review YES
[2020-05-05 04:45] LABS: Alanine Aminotransferase 21 IU/L (<50); Albumin 4.5 g/dL (3.5-5.0); Albumin Globulin Ratio 1.9 (1.0-2.8); Alkaline Phosphatase 75 U/L (38-126); Aspartate Aminotransferase 22 IU/L (17-59); BUN Creatinine Ratio 19.6 (6-22); Bilirubin Total 1.3 mg/dL (0.2-1.3); Blood Urea Nitrogen 20 mg/dL (9-20); Calcium 9.5 mg/dL (8.4-10.2); Carbon Dioxide 21 mmol/L (22-32); Chloride 108 mmol/L (98-107); Creatine Kinase 102 U/L (55-170); Estimated Glomerular Filt Rate > 60.0 mL/min (>60); Globulin 2.4 g/dL (1.7-4.1); Glucose 169 mg/dL (80-110); HEMOLYSIS < 15 (0-50); Lipase 108 U/L (23-300); Potassium 3.9 mmol/L (3.4-5.1); Sodium 139 mmol/L (137-145); Total Protein 6.9 g/dL (6.3-8.2)
[2020-05-05] MEDS: PANTOPRAZOLE 40 MG VIAL IV (04:50)
[2020-05-05 04:56] LABS: D Dimer < 200 ng/mL (<230); NT-proBNP (BNP-Adult 18+) 63 pg/mL (<125); Troponin I < 0.012 ng/mL (0.01-0.034)
--- NOTE | 2020-05-05 04:57 | PC.NURSE ---
Pt now resting quietly with eyes closed after second dose of morphine.
[2020-05-05 05:00] LABS: CKMB % Relative Index 0.9 % (1.5-5.0); Creatine Kinase MB 0.94 ng/mL (<2.37)
[2020-05-05 05:07] LABS: Neutrophils Absolute Manual 10336 /uL (3000-5900); RBC Morphology Normal Morphology; Total Cells Counted 100
[2020-05-05] MEDS: MAG HYDROX/ALUMINUM/SIMETH SUS 20 ML, LIDOCAINE VISCOUS 2% 15 ML PO (05:44)
--- NOTE | 2020-05-05 06:01 | PC.NURSE ---
No improvement with GI cocktail
[2020-05-05] MEDS: dilTIAZem 5 MG/ML SDV IV (06:05)
--- NOTE | 2020-05-05 06:13 | DI.CT.S_ITS ---
PROCEDURE: CT CHEST ABDOMEN W CON INDICATIONS: severe chest/abdomen pains TECHNIQUE: After the administration of intravenous contrast, 5 mm thick sections acquired from the lung apices to the iliac crests. 5 mm coronal and sagittal reformats were performed, with additional 7 mm coronal MIP reformats through the lungs. For radiation dose reduction, the following was used: automated exposure control, adjustment of mA and/or kV according to patient size. COMPARISON: None. FINDINGS: Image quality: Excellent. CHEST: Lungs and pleura: No acute airspace opacities. No pleural effusions or pneumothorax. Central and peripheral airways appear patent and normal in caliber. Mediastinum: Heart size is normal. No pericardial effusion. No mediastinal or hilar adenopathy by size criteria. Thoracic aorta and central pulmonary arteries are normal in size. Esophagus is normal in caliber. No hiatal hernia. Chest wall: No axillary or supraclavicular adenopathy by size criteria. Thyroid gland normal . ABDOMEN: Solid organs: Liver is normal in size and enhancement. Gallbladder contains multiple small gallstones partially calcified, within the gallbladder lumen and there is a stone also at the junction of the gallbladder neck and proximal cystic duct. Currently the adjacent bile ducts are not distended but the gallbladder length is up to 11.3 cm and no definite gallbladder inflammation is found. . Biliary system is non dilated. Pancreas enhances normally. Spleen is normal in size and enhancement. No adrenal nodules. Kidneys demonstrate normal size and enhancement, without hydronephrosis. Peritoneum and bowel: Bowel loops demonstrate normal wall thickness and caliber. No free fluid or air. Nodes and vessels: No retroperitoneal or mesenteric adenopathy by size criteria. Aorta and inferior vena cava are normal in size. Bones: No suspicious bony lesions. No vertebral body compression fractures. Miscellaneous: No ventral hernias. IMPRESSION: Multiple small calculi within the gallbladder lumen of a size that easily could transit through the cystic duct and into the common bile duct. There also is what appears to be a calculus that has transit to the junction of the gallbladder neck and proximal cystic duct, and the gallbladder length is up to 11.3 cm. This is considered potential evidence of gallbladder hydrops perhaps related to the calculus noted. Please correlate for presence or absence of acute cholecystitis. Note: These findings are concordant with the preliminary interpretation. Dictated by: Luis Terrell M.D. on 05/05/2020 at 7:41 Approved by: Luis Terrell M.D. on 05/05/2020 at 7:47
[2020-05-05 08:51] LABS: COVID19 -Nasal RAPID Negative (Negative)
--- NOTE | 2020-05-05 09:13 | P.HP_ITS ---
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 This diagnosis was based on symptoms only. He has not had any imaging performed. He gets severe epigastric pain periodically. The pain is so metimes accompanied by nausea and this episode is accompanied by vomiting as well x4. The pain is quite intense and localized to the epigastrium. When he gets his pain he usually takes a prescribed nitroglycerin with some relief. He did not seem to do anything this episode and he also took I co some mean which seemed to make the pain worse. For several months he had been having pain on an average of every 2 weeks. This is the most intense it is been. He eats a diet rich in fat and yesterday for breakfast had greasy aches for lunch had fried chicken and for dinner had steak and greasy potatoes. As he thinks back over things his pain may have coincided quite a bit to eating a large amount of greasy food. There was no relief of his pain in the emergency room with nitroglycerin, Mylanta, or nifedipine. The nifedipine actually increased his heart rate but did nothing for his pain. Patient History Medical History Allergic rhinitis (Acute) GERD (gastroesophageal reflux disease) (Acute) Hx of hemorrhoids (Acute) Surgical History History of ankle surgery (Acute) Hx of spinal surgery (Acute) Family & Social History Social History: household members spouse Safety & Behavioral: Feels Safe in Current Yes Environment Tobacco & Substance use: Smoking Status Never smoker alcohol intake never Substance Use Type does not use Meds Home Medications and Allergies Home Medications Medication Instructions Recorded Confirmed Type saw palmetto 500 mg PO BID 11/14/19 05/05/20 History Esomep-EZS 20 mg PO DAILY 05/05/20 05/05/20 History melatonin 10 mg PO BEDTIME 05/05/20 05/05/20 History omeprazole 20 mg PO DAILY 05/05/20 05/05/20 History Allergies Allergy/AdvReac Type Severity Reaction Status Date / Time No Known Drug Allergies Allergy Verified 11/17/19 10:12 Review of Systems Review of Systems Narrative: Patient denies visual difficulties double vision pain is eyes earache sore throat or trouble swallowing. No tooth aches. No problem with breathing. No cough cold or asthma. No problems with his heart that he is aware of. No murmurs. No black or bloody bowel movements. Last colonoscopy was 7 years ago. Normal. No blood in his urine or kidney stones. He had some slowing of his urinary stream and began taking saw palmetto for that. No seizures or blackouts. No anxiety or depression. No problems with this thyroid pancreas he is aware of. No unusual bruising or bleeding. No chronic muscle or joint pain. He has been having a little trouble sleeping lately and began taking melatonin. He does have gastroesophageal reflux disease as he has been told and takes omeprazole to control that. Exam Vital Signs (past 8 hours): - 05/05/20 04:23 05/05/20 04:31 05/05/20 04:39 Temperature 97.9 F Pulse Rate 45 L 56 L Respiratory Rate 20 31 H Blood Pressure 169/84 H 158/79 H Pulse Oximetry 100 98 05/05/20 04:40 05/05/20 04:46 05/05/20 04:50 Temperature Pulse Rate 47 L 52 L 47 L Respiratory Rate 34 H 33 H Blood Pressure 129/66 145/69 H 147/79 H Pulse Oximetry 98 98 99 05/05/20 05:00 05/05/20 05:30 05/05/20 06:00 Temperature Pulse Rate 45 L 41 L 60 Respiratory Rate 20 18 19 Blood Pressure 140/72 160/77 H 147/85 H Pulse Oximetry 94 94 95 05/05/20 06:37 05/05/20 06:45 05/05/20 07:00 Temperature Pulse Rate 63 59 L 56 L Respiratory Rate 18 16 Blood Pressure 157/82 H 152/83 H Pulse Oximetry 90 L 95 96 05/05/20 07:30 05/05/20 07:31 05/05/20 08:00 Temperature Pulse Rate 54 L 51 L 55 L Respiratory Rate 17 17 16 Blood Pressure 180/86 H 183/96 H Pulse Oximetry 97 98 97 05/05/20 08:33 05/05/20 08:55 05/05/20 09:00 Temperature Pulse Rate 66 58 L 54 L Respiratory Rate 17 21 20 Blood Pressure 175/84 H Pulse Oximetry 98 98 Oxygen Delivery Method Room Air Narrative Exam Narrative: Patient is alert and cooperative in no apparent distress. Eyes are nonicteric. Pupils equal round reactive to light. Small. Conjunctivae are pink. Ears without lesion. Nasal septum is distorted.(patient denies history of fracture) nares are patent however. Oral mucosa is dry no open lesions. Teeth are intact. Extensive fillings are noted in his molars. No splits in his lips. His neck is nontender. There are no nodes felt in the neck or supraclavicular areas. Trachea is midline mobile. Thyroid is not enlarged. Lungs are clear to auscultation without rales or rhonchi. Equal percussion. Heart regular rate and rhythm without murmur gallop. No bruit in the neck. 2+ pulses dorsalis pedis. Abdomen is scaphoid and soft. No palpable masses. Mild tenderness in the epigastrium. No guarding. Liver and spleen are not palpably enlarged. No ventral hernias appreciated. Extremities without cyanosis clubbing edema or deformity. Patient is alert and oriented x3. Speech rate and content are appropriate. Affect is appropriate. No open lesions or unusual moles noted on the exposed skin. Skin texture and turgor is 2+. Face is symmetric. Uvula elevates in the midline. Gait is unremarkable. He walks unassisted without problems. Motor of the extremities is grossly normal. Objective Imaging CT scan - chest: My impression: CT of the chest is unremarkable. However the abdomen shows evidence of gallstones and perhaps 1 stone either lodged in the distal gallbladder or cystic duct. Is no dilatation of the biliary tree so I suspect it is not in the common duct. Radiologist's impression: Same as above Labs Result Diagrams: 05/05/20 04:25 05/05/20 04:25 Labs: Laboratory Results - last 24 hr 05/05/20 05/05/20 05/05/20 04:25 04:25 04:25 WBC 15.2 H RBC 5.08 Hgb 15.2 Hct 44.6 MCV 87.7 MCH 29.8 MCHC 34.0 RDW 13.1 Plt Count 275 Neut % (Auto) Not Reportable Lymph % (Auto) Not Reportable [place] % (Auto) Not Reportable Eos % (Auto) Not Reportable Baso % (Auto) Not Reportable Lymph # (Auto) Not Reportable [place] # (Auto) Not Reportable Baso # (Auto) Not Reportable Total Counted 100 Seg Neutrophils % 66.0 Band Neutrophils % 2.0 L Lymphocytes % (Manual) 22.0 L Monocytes % (Manual) 9.0 Basophils % (Manual) 1.0 Neutrophils # (Manual) 48664 H RBC Morphology Normal morphology PT 11.8 INR 1.0 D-Dimer < 200 Sodium 139 Potassium 3.9 Chloride 108 H Carbon Dioxide 21 L BUN 20 Creatinine 1.02 Estimated GFR > 60.0 BUN/Creatinine Ratio 19.6 Glucose 169 H Calcium 9.5 Total Bilirubin 1.3 AST 22 ALT 21 Alkaline Phosphatase 75 Total Creatine Kinase 102 CK-MB (CK-2) 0.94 CK-MB (CK-2) Rel Index 0.9 L Troponin I < 0.012 NT-Pro-B Natriuret Pep 63 Total Protein 6.9 Albumin 4.5 Globulin 2.4 Albumin/Globulin Ratio 1.9 Lipase 108 COVID-19 PCR 05/05/20 07:20 WBC RBC Hgb Hct MCV MCH MCHC RDW Plt Count Neut % (Auto) Lymph % (Auto) [place] % (Auto) Eos % (Auto) Baso % (Auto) Lymph # (Auto) [place] # (Auto) Baso # (Auto) Total Counted Seg Neutrophils % Band Neutrophils % Lymphocytes % (Manual) Monocytes % (Manual) Basophils % (Manual) Neutrophils # (Manual) RBC Morphology PT INR D-Dimer Sodium Potassium Chloride Carbon Dioxide BUN Creatinine Estimated GFR BUN/Creatinine Ratio Glucose Calcium Total Bilirubin AST ALT Alkaline Phosphatase Total Creatine Kinase CK-MB (CK-2) CK-MB (CK-2) Rel Index Troponin I NT-Pro-B Natriuret Pep Total Protein Albumin Globulin Albumin/Globulin Ratio Lipase COVID-19 PCR Negative Assessment & Plan Assessment & Plan narrative: The patient is a gentleman with epigastric pain and gallstones 1 of which is lodged in the neck with an enlarged elongated gallbladder suggesting hydrops. I am not certain the patient has a nutcracker esophagus as the cause of his symptoms today. I believe it is his gallbladder. His symptoms today are fairly classic for gallbladder disease with epigastric pain nausea vomiting no response to nitroglycerin nifedipine high co some mean and an elevated white blood cell count none of which should occur in combination with a nutcracker esophagus. I have discussed removing his gallbladder with him . His was present during the discussion. Risks of bleeding, infection, injury to internal organs or ducts which would require major operation to repair, bile leakage and hernia were all discussed with him. Restrictions postop discussed with him. Symptoms that might occur without a gallbladder also discussed with him. He appears to understand and wishes to proceed. COVID-19 testing is negative. Gastroesophageal reflux disease: Will continue proton pump inhibitor if the patient's days. He has already been given a does in the ER. BPH symptoms: Patient takes op all [place]. While he can continue that, because of the urgency of the operation I will just have to deal with any increased bleeding that might occur because of it. COVID-19 COVID-19 status: Negative Result date/Date tested (Pos, Neg/Pending): 05/05/20
[2020-05-05] MEDS: LACTATED RINGERS 1,000 ML 42 ML IV ×2 (10:00→12:04)
[2020-05-05] MEDS: CEFOTETAN 2 GM/50 ML PIGGYBACK IV (10:18)
--- NOTE | 2020-05-05 10:49 | SUR.OPER ---
Supine on padded OR bed, head on pillow, arms secured on padded arm boards at <90 degrees abduction, legs uncrossed, safety belt at thigh, tape over blanket over lower legs.
[2020-05-05] MEDS: BUPIVACAINE 0.5% (PF) VIAL 30 ML INJ (10:57)
[2020-05-05] MEDS: IOPAMIDOL 15 ML VIAL 45 ML INJ (12:01)
--- NOTE | 2020-05-05 13:13 | P.OP_ITS ---
Operative Date/Time/Diagnoses Date of procedure: 05/05/20 Time of procedure: 13:14 Pre-op diagnosis: Acute cholecystitis with cholelithiasis and probable hydrops of the gallbladder Post-op diagnosis: same Procedure & Clinicians Procedure: Laparoscopic cholecystectomy with intraoperative cholangiogram Same procedure as scheduled: Yes Indications: Severe epigastric pain elevated white blood cell count and gallstones Surgeon: Louis Magallon Click Yes if Unassisted: Yes Anesthesia Type: General Operative Notes Findings: Thickened edematous gallbladder wall. Normal appearing cholangiogram. Closure Type: primary Specimen(s): other (Gallbladder and contents) Prosthetic devices, grafts, tissues, transplants, or devices: None Estimated Blood Loss (mL): 70 Blood products transfused: none Procedure in detail: The patient was placed supine on the operating room table and underwent general endotracheal anesthesia. The patient was prepped and draped in the usual fashion. Local anesthetic was infiltrated near the umbilicus and curvilinear incision made and carried down through fascia into the peritoneal cavity. Stay sutures of 0 Vicryl were placed in the fascia. A 12 mm port was placed. The abdomen was insufflated. The patient was repositioned. Local anesthetic was infiltrated in 3 areas under the right costal margin and 3 small incisions made followed by placing 3 5 mm ports under direct laparoscopic camera vision internally. There was a E moderate amount of brownish fluid laying in the right gutter next to the liver. This was suctioned out. The gallbladder identified as a thickened edematous structure that was tensely distended and elongated. A needle was inserted and I aspirated 50 cc of dark green fluid. This allowed me to grasp and elevate the gallbladder. Dissection was begun near its end. There was a lot of edema and inflammation at the end of the gallbladder. I stripped it down and identified the structures leading to the gallbladder. First identified was what appeared to be the artery and I it from surrounding structures. Three clips were placed across and it was divided leaving 2 in the patient. The cystic duct appeared to be surrounded by densely adherent tissue and it made it difficult to identify the duct itself. I squeeze the duct and attempted to milk any stones that might be in it back into the gallbladder but this did not alleviate the problem. Since I could not clearly identify the cystic duct initially I decided to take the gallbladder down from above. Using cautery and the Harmonic scalpel the gallbladder was released from its bed in the liver.. Very careful dissection at the end of the gallbladder allowed me to identify clearly the cystic duct. It was quite thick and and edematous. I decided to place a loop of 0 PDS near the end of the gallbladder but not on the duct itself. I then intentionally made a small incision in the junction of the cystic duct and gallbladder and inserted a cholangiocatheter. I performed a cholangiogram that showed a normal ductal anatomy with normal size and free flow into the duodenum and a fairly long cystic duct. There did not appear to be any filling defects. Unfortunately the images were on able to be saved except for still pictures at the end of each injection. Satisfied that there were no stones I placed a loop of 0 PDS on the cystic duct and a clip beyond this. I divided the cystic duct leaving this clip and loop on the patient's cystic duct stump. I then divided the cystic duct gallbladder junction and removed the gallbladder. It was detached and removed through the umbilical port. I had to slightly enlarge my fascial incision to allow this very thick walled gallbladder to come through the fascia. I reinserted my 12 mm port at the umbilicus and exam of the right upper quadrant. There was no ongoing bleeding. I suctioned any fluid from the right upper quadrant. I then removed the ports. The port sites were all irrigated. The stay sutures at the umbilicus were elevated. A 2 0 PDS suture was placed between them. The Vicryl and PDS sutures were then tied. The wounds were all irrigated with saline. The skin in all areas was closed with interrupted 4 0 Vicryl subcuticular stitches. Steri-Strips and Mastisol were applied. Band- Aids were placed and the patient was awakened, extubated and taken to the recovery area in good condition. Complications: none Post-operative Condition: stable Disposition: PACU Plan for aftercare: Discharge home from the preop area.
[2020-05-05] MEDS: fentaNYL 100 MCG/2 ML INJ IV (13:53)
[2020-05-05] MEDS: OXYCODONE/ACETAMINOPHEN 5/325 TABLET 1 TAB PO ×2 (14:09→14:24)
--- NOTE | 2020-05-05 14:50 | SUR.PHASEI ---
Pt was being ready for discharge when developed n/v with approx 240cc of emesis noted. It was green in color indicating old contents. Nausea cleared and pt continued dressing without further incident. Pt was escorted to ED entrance by Avelina Boswell via .
== END 2020-05-05 14:50 | disposition home or self-care (01) ==
LOC: ED 07:28 → AC 09:14
PROVIDERS: Admitting Provider Specialist; Emergency Provider Emergency Medicine; Family Provider Family Medicine; PCP Family Medicine; Referring Provider Emergency Medicine; Visit Provider Specialist
PROC: 0FT44ZZ Resection of Gallbladder, Percutaneous Endoscopic Approach (ICD-10-PCS; CPT 47562; principal; 2020-05-05 09:30)
DX: K81.0 Acute cholecystitis (principal); R07.9 Chest pain, unspecified; K21.9 Gastro-esophageal reflux disease without esophagitis; Z11.59 Encounter for screening for other viral diseases
CPT/HCPCS: 47563; 36415; 71045; 71260; 74160; 74300; 80053; 82550; 82553; 83690; 83880; 84484; 85025; 85379; 85610; 87635; 93005; 96361; 96374; 96375; 99220; 99285; G0378; C9113; J0360; J1100; J2270; J2405; J2704; J3010; Q9967

== ENCOUNTER 2023-06-29 20:13 | Emergency (ER) | payer OTHER, MEDICAID, SELFPAY ==
[2023-06-29] VITALS (12 sets, daily range): BP systolic 133–165; BP diastolic 84–94; PULSE 73–81; RESP 15–19; TEMP 36.9; O2SAT 95–100; BMI 26.6
--- NOTE | 2023-06-29 20:30 | DI.RAD.S_ITS ---
PROCEDURE: XR LUMBAR SPINE 2-3V INDICATIONS: fall with midline back pain TECHNIQUE: 3 views of the lumbar spine were acquired. COMPARISON: [facility], CT, CT CHEST ABDOMEN W CON, 05/05/2020, 6:14. MR, L-SPINE WITH AND WITHOUT CONTR, 02/04/2007, 8:14. FINDINGS: Bones: 5 [id number] vertebrae are present. There are postsurgical changes status post posterior fixation at T11 through L2 with corpectomy at L1 redemonstrated. No change in alignment. No definite acute fractures. Minimal superior endplate compression deformity of the T12 vertebral body appears unchanged. Soft tissues: Overlying bowel gas pattern is normal. No suspicious soft tissue calcifications. IMPRESSION: 1. No definite acute fracture or subluxation. Dictated by: Manuel Levy M.D. on 06/29/2023 at 22:09 Approved by: Manuel Levy M.D. on 06/29/2023 at 22:15
--- NOTE | 2023-06-29 20:30 | DI.RAD.S_ITS ---
PROCEDURE: XR WRIST RT MIN 3V INDICATIONS: fall with wrist pain TECHNIQUE: 3 views of the wrist were acquired. COMPARISON: None. FINDINGS: Bones: There is a comminuted fracture of the distal radius extending to the radiocarpal and distal radioulnar joints. There is mild dorsal angulation. Soft tissues: No suspicious soft tissue calcifications. IMPRESSION: 1. Comminuted intra-articular fracture of the distal radius with mild dorsal angulation. Dictated by: Manuel Levy M.D. on 06/29/2023 at 22:15 Approved by: Manuel Levy M.D. on 06/29/2023 at 22:22
--- NOTE | 2023-06-29 21:01 | ED_ITS ---
HPI - Trauma General Chief Complaint: Trauma Stated Complaint: rt arm and back injury / fall off roof Time Seen by Provider: 06/29/23 20:20 Source: patient Mode of arrival: Ambulatory History of Present Illness HPI narrative: 62-year-old male nonsmoker presents with a chief complaint of right wrist pain and some low back pain. He states that he was working at the peak of a roof when he lost his balance and slid down to the edge of the roof and fell off onto the ground. He thinks he likely landed on his buttocks and is unsure if he struck his head. He denies loss of consciousness, nausea or vomiting. He does not take blood thinners. He denies any chest pain but feels like maybe he is a bit short of breath. He denies any head neck pain. No shoulder or elbow pain does have pain in his right wrist but denies any numbness, tingling or weakness. He denies any lower extremity pain such as ankles, knees and is otherwise well and free of complaint. He is activated as a modified trauma given the nature his fall, suspected injury Related Data Home Medications Medication Instructions Recorded Confirmed Esomep-EZS 20 mg PO DAILY 05/05/20 05/05/20 melatonin 5 mg tablet 10 mg PO BEDTIME 05/05/20 05/05/20 omeprazole 20 mg capsule,delayed 20 mg PO DAILY 05/05/20 05/05/20 release Previous Rx's Medication Instructions Recorded oxycodone-acetaminophen 5 mg-325 See Rx Instructions .Route 05/05/20 mg tablet (Percocet) .COMPLEX PRN painful procedure #14 tabs hydrocodone 5 mg-acetaminophen 325 1 tab PO Q4-6H PRN pain #20 tabs 06/29/23 mg tablet Allergies Allergy/AdvReac Type Severity Reaction Status Date / Time No Known Drug Allergies Allergy Verified 11/17/19 10:12 Review of Systems Review of Systems Narrative: GENERAL: Denies chills, fatigue, malaise, fever, sweats. HEENT: Denies sinus pain, ear pain, sore throat, difficulty swallowing, dizziness. RESPIRATORY: See HPI CARDIOVASCULAR: Denies chest pain, palpitations, orthopnea, edema, GASTROINTESTINAL: Denies nausea, vomiting, abdominal pain, diarrhea, constipation, melena. : Denies dysuria, frequency, incontinence, hematuria, urinary retention. MUSCULOSKELETAL: See HPI SKIN: Denies rash, skin lesions, or other NEUROLOGIC: See HPI PSYCHIATRIC: No concerning psychosocial issues. 12 point review of systems is negative except for those stated above Patient History Medical History (Updated 06/29/23 @ 22:28 by Juliano Epps DO) Allergic rhinitis GERD (gastroesophageal reflux disease) Hx of hemorrhoids Surgical History History of ankle surgery Hx of spinal surgery Social History household members: spouse Smoking Status: Never smoker alcohol intake: never Smoking Status: Never smoker Substance Use Type: does not use Exam Narrative Exam Narrative: GENERAL: [62] year old patient appears stated age. Well-developed patient, in mild distress. GCS 15 HEAD: Atraumatic. Normocephalic. No contusion, abrasion or laceration EYES: Pupils equal round and reactive. Extraocular motions intact. No hyphema No scleral icterus. No injection or drainage. ENT: Nose without bleeding, purulent drainage. No nasal septal hematoma or hemotympanum Throat without erythema, tonsillar hypertrophy or exudate. Airway patent. NECK: Trachea midline. Non tender, no step-offs or crepitance, no pain with axial load CARDIOVASCULAR: Regular rate and rhythm without murmurs, gallops, or rubs. RESPIRATORY: Clear to auscultation. Breath sounds equal bilaterally. No wheezes, rales, or rhonchi. GASTROINTESTINAL: Abdomen soft, non-tender, nondistended. EXTREMITIES: Pain in right wrist with obvious swelling, this is closed, isolated and neurovascularly intact BACK: Nontender without deformity or crepitance. No flank tenderness. No step- offs or crepitance NEURO: AOx3. SKIN: No rash or erythema of visible areas Initial Vital Signs Initial Vital Signs: Vital Signs Temperature 98.4 F 06/29/23 20:23 Pulse Rate 75 06/29/23 20:23 Respiratory Rate 18 06/29/23 20:23 Blood Pressure 148/88 H 06/29/23 20:23 Pulse Oximetry 98 06/29/23 20:23 Oxygen Delivery Method Room Air 06/29/23 20:23 Procedures Orthopedic Splinting/Casting Injury #1: Side: right Upper Extremity Injury Location: wrist Upper Extremity Immobilizer: sling/shoulder immobilizer and sugar tong splint Post splinting neuro exam: intact Post splinting vascular exam: intact Placed by: Nursing Course Orders Ordered: ED Orders 06/29/23 20:30 XR lumbar spine 2-3V Stat XR wrist RT min 3V Stat 06/29/23 21:08 CT cervical spine wo con Stat CT head/brain wo con Stat 06/29/23 21:11 Chest [XR chest 2V] Stat Discontinued Medications Hydrocodone Bitart/Acetaminophen (Hydrocodone/Acet 5/325 Prepack) 1 bottle MISC SEEINSTR ONE Stop: 06/29/23 21:34 Last Admin: 06/29/23 21:42 Dose: 1 bottle Documented By: NATHANIEL Hydrocodone Bitart/Acetaminophen (Hydrocodone/Acet 5/325 Tablet) 2 tab PO NOW ONE Stop: 06/29/23 21:34 Last Admin: 06/29/23 21:42 Dose: 2 tab Documented By: NATHANIEL Ondansetron HCl (Ondansetron 4 Mg Odt Prepack) 1 bottle MISC SEEINSTR ONE Stop: 06/29/23 21:34 Last Admin: 06/29/23 21:43 Dose: 1 bottle Documented By: NATHANIEL Vital Signs Vital signs: Vital Signs - 8 hr 06/29/23 20:55 06/29/23 20:55 06/29/23 21:00 Pulse Rate 79 81 Respiratory Rate Blood Pressure 165/85 H Pulse Oximetry 96 97 Oxygen Delivery Method 06/29/23 21:03 06/29/23 21:03 06/29/23 21:31 Pulse Rate 80 73 Respiratory Rate 17 Blood Pressure 148/84 H Pulse Oximetry 97 100 Oxygen Delivery Method Room Air 06/29/23 21:34 06/29/23 21:34 06/29/23 21:45 Pulse Rate 73 74 Respiratory Rate 15 19 Blood Pressure 165/94 H Pulse Oximetry 98 97 Oxygen Delivery Method 06/29/23 21:45 06/29/23 22:00 06/29/23 22:00 Pulse Rate 76 Respiratory Rate 19 Blood Pressure 147/90 H 147/94 H Pulse Oximetry 97 Oxygen Delivery Method 06/29/23 22:15 06/29/23 22:15 06/29/23 22:30 Pulse Rate 74 Respiratory Rate 17 Blood Pressure 133/88 134/86 Pulse Oximetry 96 Oxygen Delivery Method Room Air 06/29/23 22:30 06/29/23 22:45 06/29/23 22:45 Pulse Rate 73 75 Respiratory Rate 16 16 Blood Pressure 149/92 H Pulse Oximetry 95 96 Oxygen Delivery Method 06/29/23 23:00 06/29/23 23:00 Pulse Rate 76 Respiratory Rate 19 Blood Pressure 136/84 Pulse Oximetry 95 Oxygen Delivery Method MDM - Trauma MDM Narrative Medical decision making narrative: [62] year old patient presents with fall with wrist and back pain Multiple etiologies for patient's symptoms considered including, but not limited to: [Wrist fracture versus dislocation versus intracranial hemorrhage versus lumbar injury versus other] Prior Charts reviewed in our EMR Primary Historian: patient Imaging reviewed: Head CT and cervical CT without fracture or intracranial hemorrhage, chest x-ray demonstrates no rib fracture or pneumothorax. Lumbar spine demonstrates no compression fracture. Right wrist with distal radius fracture Consultations: Discussed with on-call orthopedist (Alirio), she is reviewed history and physical exam as well as imaging and sure the opinion that attempts at reduction at the bedside are not likely to improve alignment. Patient's symptoms improved over duration of stay with above-stated therapies. Findings and discharge diagnosis discussed with patient/family followed by verbalization of understanding Return precautions discussed with patient/family whom verbalize understanding of diagnosis and plan Discharge Plan Departure Patient Disposition: Home Clinical Impression: Distal radial fracture, Back pain Instructions: DI for Trauma Activity Restrictions/Additional Instructions: *You have been diagnosed with [ fall with Right wrist fracture] *What to do: *Please continue to take your regular medications as directed. [ x] New medication prescriptions sent to your pharmacy: [[facility] ] [ ] New medication written as a paper prescription [x] Tylenol and occasional Motrin for pain *Please follow up with Dr. Marianela Amezquita] of [facility] in 2-3 days, call for an appointment. Let them know you were seen in the Emergency Department and that we ask that you be seen in follow up. We will electronically transmit a record of today's note if your PCP is in our system *Return to Emergency Department if you should have any new, worsening or concerning symptoms, such as [worsening pain, significant swelling, cold extremities, numbness, tingling, weakness or other bothersome symptoms Splint Care: Keep splint clean and dry. Elevated affected body part to decrease swelling. OK to use ice pack on the affected body part. Use for 15-20 minutes each time, for 5-6x per day. If you develop worsening pain, numbness, tingling, discoloration of the affected body part, loosen the splint by loosening the VARUN wrap, and either see your doctor for an urgent re-assessment, or return to the Emergency Department. Return to the Emergency Department for any new or worsening symptoms. You have been prescribed a short course of narcotic medications. These are potentially dangerous and addictive medications that should be used carefully. While on these medications you cannot drive or operate heavy machinery. Additionally, you cannot sign legal documents or perform any duties such as this. Many people get constipated on narcotic medications so it would be advisable to discuss stool softeners with the pharmacist when you picker operator your prescription. Please understand that we cannot provide further refills of narcotics or controlled substances through the ED and your pain management will need to be through your Primary Care Provider Prescriptions: New hydrocodone-acetaminophen 5-325 mg tablet 1 tab PO Q4-6H PRN (Reason: pain) Qty: 20 0RF No Action omeprazole 20 mg Capsule,Delayed Release(Dr/Ec) 20 mg PO DAILY melatonin 5 mg Tablet 10 mg PO BEDTIME Esomep-EZS 20 mg tablet 20 mg PO DAILY oxycodone-acetaminophen [Percocet] 5-325 mg tablet See Rx Instructions .ROUTE .COMPLEX PRN (Reason: painful procedure) Qty: 14 0RF Rx Instructions: Take 1 or 2 pills every 6 hours if needed for pain. May constipate. Referrals: Radha Amezquita MD [Physician] - Dashawn Kessler DO [Primary Care Provider] - Stand Alone Forms: Patient Portal/API
--- NOTE | 2023-06-29 21:08 | DI.CT.S_ITS ---
PROCEDURE: CT HEAD/BRAIN WO CON INDICATIONS: fall from roof, head injury TECHNIQUE: Noncontrast 4.5 mm thick angled axial sections acquired from the foramen magnum to the vertex, with coronal and sagittal reformats. For radiation dose reduction, the following was used: automated exposure control, adjustment of mA and/or kV according to patient size. COMPARISON: None. FINDINGS: Image quality: Excellent. CSF spaces: Basal cisterns are patent. No extra-axial fluid collections. Ventricles are normal in size and shape. Brain: No intracranial hemorrhage, mass, or mass effect. Mcconnell-white matter interface appears preserved. Skull and face: Calvarium and visualized facial bones are intact, without suspicious lesions. Sinuses: Visualized sinuses and mastoids are clear. IMPRESSION: 1. No acute intracranial abnormality. Dictated by: Manuel Levy M.D. on 06/29/2023 at 21:56 Approved by: Manuel Levy M.D. on 06/29/2023 at 21:57
--- NOTE | 2023-06-29 21:08 | DI.CT.S_ITS ---
P the ROCEDURE: CT CERVICAL SPINE WO CON INDICATIONS: fall from roof with head injury, distracting injury (wrist) TECHNIQUE: Noncontrast 3 mm thick sections acquired from the skull base to the T4 level. Sagittal and coronal reformats were then constructed. For radiation dose reduction, the following was used: automated exposure control, adjustment of mA and/or kV according to patient size. COMPARISON: None. FINDINGS: Image quality: Excellent. Bones: No fractures or subluxation. There is multilevel degenerative disc disease and facet joint arthropathy. Visualized superior ribs are intact. Soft tissues: Prevertebral soft tissues are normal in thickness. No paravertebral hematomas. No apical pneumothoraces. IMPRESSION: 1. No fracture or subluxation. Dictated by: Manuel eLvy M.D. on 06/29/2023 at 21:57 Approved by: Manuel Levy M.D. on 06/29/2023 at 21:59
--- NOTE | 2023-06-29 21:11 | DI.RAD.S_ITS ---
PROCEDURE: XR CHEST 2V INDICATIONS: fall TECHNIQUE: 2 views of the chest were acquired. COMPARISON: [facility], , XR CHEST 1V, 05/05/2020, 4:33. FINDINGS: Surgical changes and devices: Postsurgical changes redemonstrated within the visualized lower thoracic and lumbar spine. Lungs and pleura: Lungs are clear. No pleural effusions or pneumothorax. Mediastinum: Mediastinal contours are normal. Heart size is normal. Bones and chest wall: No displaced fracture identified. No suspicious bony abnormalities. Soft tissues appear unremarkable. IMPRESSION: 1. No acute cardiopulmonary disease. Dictated by: Manuel Levy M.D. on 06/29/2023 at 22:51 Approved by: Manuel Levy M.D. on 06/29/2023 at 22:52
[2023-06-29] MEDS: HYDROCODONE/ACET 5/325 TABLET 2 TAB PO (21:42)
[2023-06-29] MEDS: HYDROCODONE/ACET 5/325 PREPACK 1 BOTTLE MISC (21:42)
[2023-06-29] MEDS: ONDANSETRON 4 MG ODT PREPACK 1 BOTTLE MISC (21:43)
== END 2023-06-29 23:20 | disposition home or self-care (01) ==
PROVIDERS: Emergency Provider Emergency Medicine; Family Provider Family Medicine; PCP Family Medicine
DX: S52.501A Unspecified fracture of the lower end of right radius, initial encounter for closed fracture (principal); M54.50 Low back pain, unspecified; W13.2XXA Fall from, out of or through roof, initial encounter
CPT/HCPCS: 29125; 70450; 71046; 72100; 72125; 73110; 99284

== ENCOUNTER 2025-09-03 13:44 | Day surgery (SDC) | payer MEDICARE, SELFPAY ==
[2025-08-21 08:31] VITALS: BMI 21.9
[2025-09-03 14:18] VITALS: BP 149/84; PULSE 72; RESP 16; TEMP 36.2; O2SAT 99
[2025-09-03] MEDS: LACTATED RINGERS 1,000 ML 42 ML IV (14:28)
--- NOTE | 2025-09-03 14:57 | PM.HP.IH.1 ---
History of Present Illness History of Present Illness Date Patient Seen: 09/03/25 Chief complaint: Screening Colonoscopy last May 2023 but history Narrative: History of polyps though not most recently [facility] Medical History (Updated 07/14/23 @ 00:01 by ) Allergic rhinitis GERD (gastroesophageal reflux disease) Hx of hemorrhoids Surgical History (Updated 08/21/25 @ 08:31 by Nicki Guthrie RN) Hx laparoscopic cholecystectomy (05/05/20) Hx of spinal surgery History of ankle surgery Social History household members: spouse Smoking Status: Never smoker alcohol intake: never Meds Home Medications and Allergies Home Medications ?Medication ?Instructions ?Recorded ?Confirmed ?Type Esomep-EZS 20 mg PO DAILY 05/05/20 05/05/20 History melatonin 5 mg tablet 10 mg PO BEDTIME 05/05/20 05/05/20 History omeprazole 20 mg capsule,delayed 20 mg PO DAILY 05/05/20 05/05/20 History release oxycodone-acetaminophen 5 mg-325 See Rx Instructions .Route 05/05/20 Rx mg tablet (Percocet) .COMPLEX PRN painful procedure #14 tabs hydrocodone 5 mg-acetaminophen 325 1 tab PO Q4-6H PRN pain #20 tabs 06/29/23 Rx mg tablet sodium,potassium,mag sulfates 17.5 See Rx Instructions PO .COMPLEX 08/20/25 Rx gram-3.13 gram-1.6 gram oral soln #354 mL (Suprep Bowel Prep Kit) tamsulosin 0.4 mg capsule 0.4 mg PO DAILY 09/03/25 09/03/25 History Allergies Allergy/AdvReac Type Severity Reaction Status Date / Time No Known Drug Allergies Allergy Verified 09/03/25 14:16 Exam Vital Signs (past 8 hours): - 09/03/25 14:18 Temperature 97.2 F L Pulse Rate 72 Respiratory Rate 16 Blood Pressure 149/84 H Pulse Oximetry 99 Oxygen Delivery Method Room Air Oxygen Delivery Method Room Air Narrative Exam Narrative: Oropharynx free of lesions Chest clear to auscultation percussion Cardiac exam reveals no S3 or murmur Assessment & Plan Assessment & Plan narrative: History of colon polyps need for follow-up colonoscopy. Last colonoscopy negative May 2023. Risks, benefits, alternatives have been explained. Time-Based Coding :: [TOTAL MINUTES] spent with patient and on the chart (including review of chart, obtaining history, exam, reviewing outside data, placing orders, documenting exam and treatment plan, and counseling patient) on [DATE]. PROFEE Skewer Up Document charge(s): No
--- NOTE | 2025-09-03 14:59 | PM.OP.COLON ---
Operative Date/Time/Diagnoses Date of procedure: 09/03/25 Time of procedure: 15:25 Pre-op diagnosis: See indication and findings. Post-op diagnosis: same Procedure & Clinicians Study performed: Colonoscopy Same procedure(s) as scheduled: Yes Indications: Screening colonoscopy Anesthesia Type: MAC +/- Procedure Notes Procedure in detail: After informed consent was obtained the patient was placed in left lateral decubitus position. Video colonoscope was placed in the rectum slowly advanced cecum. Preparation was good. On slow withdrawal mucosa was carefully examined. The scope was removed. The patient tolerated procedure well. Blood loss none Complications none Sedation mac Findings 1. Normal colonoscopy to cecum Patient should have follow-up colonoscopy in 10 years Estimated Blood Loss: 0 Complications: none
[2025-09-03 15:27] VITALS: BP 119/74; PULSE 74; RESP 16; TEMP 36.2; O2SAT 94
[2025-09-03 15:32] VITALS: BP 125/82; PULSE 76; RESP 16; TEMP 36.2; O2SAT 96
[2025-09-03 15:37] VITALS: BP 130/85; PULSE 76; RESP 16; TEMP 36.2; O2SAT 96
[2025-09-03 15:40] VITALS: BP 119/79; PULSE 76; RESP 16; TEMP 36.2; O2SAT 96
== END 2025-09-03 16:02 | disposition home or self-care (01) ==
PROVIDERS: Family Provider Family Medicine; PCP Family Medicine; Referring Provider Internal Medicine Gastroenterology; Visit Provider Internal Medicine Gastroenterology
PROC: 0DJD8ZZ Inspection of Lower Intestinal Tract, Via Natural or Artificial Opening Endoscopic (ICD-10-PCS; CPT 45378; principal; 2025-09-03 15:00)
DX: Z12.11 Encounter for screening for malignant neoplasm of colon (principal)
CPT/HCPCS: G0121; J2704; J7120